=== PATIENT | female | born 1955 | race Caucasian/White ===

== ENCOUNTER 2018-04-25 15:52 | Outpatient (CLI) | payer BC ==
--- NOTE | 2018-04-25 18:47 | RAD ---
FOUR VIEWS LUMBAR SPINE 04/25/18 INDICATION: History of low back pain and sciatica. FINDINGS: There is slight levoscoliosis of the lumbar spine. There is mild to moderate multilevel disc degenera tive disease. There is partial lumbarization of S1. There is partial visualization of a gastric ban d. There is mild degenerative changes of both SI joints. IMPRESSION: Mild spondylosis of the lumbar spine. POS: [facility]
--- NOTE | 2018-04-25 18:53 | RAD ---
RIGHT HIP TWO VIEWS: 04/25/18 INDICATION: Right hip pain. COMPARISON: None. FINDINGS: There is mild degenerative arthrosis of the right hip. There is moderate degenerative changes of the symphysis pubis. There is mild degenerative changes of the right SI joint. IMPRESSION: No acute osseous abnormality. Degenerative changes of the right hip. POS: [facility]
--- NOTE | 2018-04-25 18:54 | RAD ---
AP AND FROGLEG VIEWS LEFT HIP: 04/25/18 HISTORY: Hip pain. AP and frogleg views left hip demonstrates no evidence of left hip fractures, subluxations or bony le sions. IMPRESSION: Normal two views left hip. POS: [facility]
== END 2018-04-25 15:53 | disposition home or self-care (01) ==
LOC: BICRAD 15:52
PROVIDERS: ATTEND Internal Medicine
DX: M54.32 Sciatica, left side (principal); M54.31 Sciatica, right side; M25.552 Pain in left hip; M25.551 Pain in right hip; M16.11 Unilateral primary osteoarthritis, right hip; M47.816 Spondylosis without myelopathy or radiculopathy, lumbar region
CPT/HCPCS: 72110

== ENCOUNTER 2020-08-10 11:35 | Outpatient (CLI) | payer BC ==
[2020-07-23 14:57] LABS: Mean Corpuscular HGB CONC 31.5 g/dL (32.0-36.0); Mean Corpuscular Hemoglobin 28.7 pg (27.0-33.0); Mean Platelet Volume 11.7 fl (7.4-10.4); Platelet Count 306 10x3/uL (150-450); RBC Distribution Width 12.3 % (11.5-14.5); Red Blood Cell (RBC) Count 4.88 10x6/uL (3.90-5.03)
[2020-07-23 15:22] LABS: PTT 30.2 sec (22.0-33.0); Prothrombin Time 10.7 sec (9.5-12.1)
[2020-07-23 15:39] LABS: Anion Gap 15 mmol/L (10-20); BUN (Urea Nitrogen) 10 mg/dL (9.8-20.1); Calc. Creatinine Clearance 0 mL/min (70-130); Calcium 9.4 mg/dL (7.8-10.44); Carbon Dioxide 26 mmol/L (23-31); Chloride 107 mmol/L (98-107); Glucose 144 mg/dL (80-115); Potassium 4.9 mmol/L (3.5-5.1); Sodium 143 mmol/L (136-145)
[2020-07-24 02:58] LABS: SARS-CoV-2 PCR by NAA Not Detected (NotDetected)
--- NOTE | 2020-07-29 15:15 | EKG ---
Test Reason : Blood Pressure : / mmHG Vent. Rate : 088 BPM Atrial Rate : 088 BPM P-R Int : 218 ms QRS Dur : 072 ms QT Int : 354 ms P-R-T Axes : 024 026 044 degrees QTc Int : 428 ms Sinus rhythm with 1st degree A-V block Anterior infarct , age undetermined Abnormal ECG No previous ECGs available Confirmed by MER HOOKS (2) on 07/29/2020 3:15:15 PM Referred By: GEO Confirmed By:MER HOOKS
[2020-08-11 01:54] LABS: SARS-CoV-2 PCR by NAA Not Detected (NotDetected)
== END 2020-08-10 11:36 | disposition home or self-care (01) ==
LOC: LABBT 11:35
PROVIDERS: ATTEND Surgery
DX: Z01.818 Encounter for other preprocedural examination (principal); M51.16 Intervertebral disc disorders with radiculopathy, lumbar region; M48.062 Spinal stenosis, lumbar region with neurogenic claudication
CPT/HCPCS: 80048; 85027; 85610; 85730; 87635; 93005; 93010; U0003; U0005

== ENCOUNTER 2020-08-13 05:55 | Day surgery (SDC) | payer BC ==
[2020-08-13] MEDS ORDERED: Thrombin 5000 UNITS/5 ML VIAL ONE (06:24)
[2020-08-13] MEDS ORDERED: Midazolam HCl 2 mg/2 ml Vial ONE (07:07)
[2020-08-13] MEDS ORDERED: Fentanyl 250 MCG/5 ML VIAL ONE (07:09)
[2020-08-13] MEDS ORDERED: Milk Of Magnesia 30 ML UDCUP PO PRN (09:31)
[2020-08-13] MEDS ORDERED: tiZANidine HCl 4 MG TAB PO PRN (09:31)
[2020-08-13] MEDS ORDERED: Acetaminophen 325 MG TAB PO PRN (09:31)
[2020-08-13] MEDS ORDERED: traMADol HCl 50 MG TAB PO PRN (09:31)
[2020-08-13] MEDS ORDERED: Bisacodyl 10 MG SUPP PR PRN (09:31)
[2020-08-13] MEDS ORDERED: Mag-Al 1200 mg/1200 mg/30 ML UDCUP PO PRN (09:31)
[2020-08-13] MEDS ORDERED: PHENYLEPHRINE-NS 100 MCG/ML 10 ML SYRINGE ONE (09:33)
[2020-08-13] MEDS ORDERED: PROPOFOL 200 MG/20 ML VIAL ONE (09:33)
[2020-08-13] MEDS ORDERED: Dexamethasone 20 MG/5 ML VIAL ONE (09:33)
[2020-08-13] MEDS ORDERED: Glycopyrrolate 0.2 MG/ML 5 ML SYRINGE ONE (09:33)
[2020-08-13] MEDS ORDERED: Ketorolac Tromethamine 30 MG/ML VIAL ONE (09:33)
[2020-08-13] MEDS ORDERED: Metoclopramide HCl 10 MG/2 ML VIAL ONE (09:33)
[2020-08-13] MEDS ORDERED: Rocuronium Bromide 10 MG/ML (10ML VIAL) ONE (09:33)
[2020-08-13] MEDS ORDERED: Lidocaine 1% PF 5 ML VIAL ONE (09:33)
[2020-08-13] MEDS ORDERED: Ondansetron PF 4 MG/2 ML Vial ONE (09:33)
[2020-08-13] MEDS ORDERED: Morphine Sulfate 2 MG/ML SYRINGE SLOW IVP PRN (09:49)
[2020-08-13] MEDS ORDERED: Ondansetron HCl/PF 4 MG/2 ML Vial IVP PRN (09:49)
[2020-08-13] MEDS ORDERED: Promethazine HCl 25 MG/ML VIAL IM PRN (09:49)
[2020-08-13] MEDS ORDERED: Promethazine HCl 25 MG/ML VIAL SLOW IVP PRN (09:49)
[2020-08-13] MEDS ORDERED: HYDROmorphone 2 MG/ML VIAL SLOW IVP PRN (09:49)
[2020-08-13] MEDS ORDERED: PACU-Morphine 4MG/ML VIAL SLOW IVP PRN (09:49)
[2020-08-13] MEDS ORDERED: Fentanyl 100 MCG/2 ML VIAL ONE ×2 (09:57→11:44)
[2020-08-13] MEDS ORDERED: HYDROmorphone 2 MG/ML VIAL ONE (10:16)
[2020-08-13 14:13] VITALS: BMI 29.1
[2020-08-13] MEDS: Sodium Chloride 0.9% 1,000 ML IV SCH (14:30)
[2020-08-13] MEDS: CEFAZOLIN 2 GM in Premix Bag 1 BAG IVPB SCH ×2 (15:40→21:05)
[2020-08-13] MEDS: Acetaminophen/Codeine 30-300mg Tablet PO PRN (18:13)
[2020-08-13] MEDS: metFORMIN 500 MG TAB PO SCH (18:14)
[2020-08-13] MEDS: Morphine 2 MG/ML VIAL SLOW IVP PRN (18:14)
[2020-08-13] MEDS ORDERED: Non-Formulary Item 1 EACH (Insulin Glargine,Hum.Rec.Anlog [Lantus Solostar] 100 UNIT/ML P SC SCH (21:00)
[2020-08-13] MEDS: Insulin Glargine 35 UNITS in Pre-Filled Syringe 1 EACH SC SCH (21:29)
[2020-08-13] MEDS: Lisinopril 10 MG TAB PO SCH (21:30)
[2020-08-13] MEDS: Simvastatin 10 MG TAB PO SCH (21:30)
[2020-08-13] MEDS: HYDROcodone/Acetaminophen 7.5/325 mg Tablet PO PRN (21:30)
[2020-08-14] MEDS: Morphine 2 MG/ML VIAL SLOW IVP PRN ×3 (00:21→10:40)
[2020-08-14] MEDS: Sodium Chloride 0.9% 1,000 ML IV SCH ×2 (00:57→13:01)
[2020-08-14] MEDS: HYDROcodone/Acetaminophen 7.5/325 mg Tablet PO PRN ×3 (06:22→20:04)
[2020-08-14] MEDS: Acetaminophen/Codeine 30-300mg Tablet PO PRN ×3 (10:34→21:53)
[2020-08-14] MEDS: HumaLOG 300 UNITS/3 ML VIAL SC PRN ×2 (13:41→17:13)
[2020-08-14] MEDS ORDERED: Dextrose 5% in Water 1,000 ML IV PRN (13:45)
[2020-08-14] MEDS ORDERED: Dextrose 50% Abboject 50 ML SYRINGE IVP PRN (13:45)
[2020-08-14] MEDS: metFORMIN 500 MG TAB PO SCH (17:12)
[2020-08-14] MEDS: Lisinopril 10 MG TAB PO SCH (20:07)
[2020-08-14] MEDS: Simvastatin 10 MG TAB PO SCH (20:07)
[2020-08-14] MEDS: Insulin Glargine 35 UNITS in Pre-Filled Syringe 1 EACH SC SCH (20:07)
[2020-08-15] MEDS: HYDROcodone/Acetaminophen 7.5/325 mg Tablet PO PRN (02:41)
[2020-08-15] MEDS: Sodium Chloride 0.9% 1,000 ML IV SCH (02:41)
[2020-08-15] MEDS: Acetaminophen/Codeine 30-300mg Tablet PO PRN (05:50)
[2020-08-15] MEDS: HumaLOG 300 UNITS/3 ML VIAL SC PRN (06:09)
[2020-08-15 07:52] VITALS: BP 112/75; TEMP 98
== END 2020-08-15 09:35 | disposition home or self-care (01) ==
LOC: SDC 05:55 → SURG A 13:20 → SDC 08-15 09:35
PROVIDERS: ATTEND Surgery
PROC: 01NB0ZZ Release Lumbar Nerve, Open Approach (ICD-10-PCS; principal; 2020-08-13)
DX: M48.062 Spinal stenosis, lumbar region with neurogenic claudication (principal); M51.16 Intervertebral disc disorders with radiculopathy, lumbar region; Z79.4 Long term (current) use of insulin; Z79.82 Long term (current) use of aspirin; Z79.899 Other long term (current) drug therapy; Z88.8 Allergy status to other drugs, medicaments and biological substances
CPT/HCPCS: 36416; 76000; J0690; J1100; J1170; J1815; J1885; J2250; J2270; J2405; J2704; J2765; J3010; J3370